=== PATIENT | male | born 1980 | race American Indian/Alaskan Native ===

== ENCOUNTER 2016-12-24 16:45 | Emergency (ER) | payer OTHER ==
[2016-12-24 16:57] VITALS: BP 141/98
[2016-12-24] MEDS ORDERED: NACL 0.9% 1000 ML 1,000 ML IV ONE (16:57)
--- NOTE | 2016-12-24 17:16 | Emergency Department Report ---
Chief Complaint: GI Bleed Stated Complaint: ABDOMINAL PAIN Time Seen by Provider: 12/24/16 17:08 - HPI History of Present Illness: Patient is a 36-year-old male with history of stomach ulcers presents to ED complaining of generalized abdominal pain of vomiting 3 days. Admits bloody stools times today - ROS Review of Systems: As noted in HPI - Exam Vital Signs: Vital Signs 12/24/16 16:54 Temperature 98.6 F Pulse Rate 80 Respiratory 20 Rate Blood Pressure 141/98 O2 Sat by Pulse 100 Oximetry Physical Exam: GENERAL: Alert and oriented x3, in mild distress , Normal Gait, atraumatic. HEART: S1, S2 present, regular rate and rhythm without murmur, no rubs, no gallops. Non tender to palpation ABDOMEN: No organomegaly was noted,Positive bowel sounds, soft, and non- distended. Tender to palpation on all Quadrants, NO CVA tenderness. SKIN: Warm and dry, No lesions, No ulceration or induration present. MSE screening note: Focused history and physical exam performed. Due to findings the following was ordered: ED Medical Decision Making - Medical Decision Making GI bleed protocol ordered. Ultrasound of the abdomen ordered. Patient to be seen by ED physician. ED Disposition for MSE Condition: Stable Forms: Accompanied Note
[2016-12-24 17:48] LABS: Basophils % (Auto) 0.5 % (0.0-1.8); Eosinophils % (Auto) 0.4 % (0.0-4.3); Hematocrit 40.9 % (35.5-45.6); Hemoglobin 13.8 gm/dl (11.8-15.2); Mean Corpuscular HGB Conc 34 % (32-34); Mean Corpuscular Hemoglobin 32 pg (28-32); Mean Corpuscular Volume 95 fl (84-94); Platelet Count 243 K/mm3 (140-440); Red Blood Count 4.31 M/mm3 (3.65-5.03); White Blood Count 8.2 K/mm3 (4.5-11.0)
[2016-12-24 17:57] LABS: INR 0.96 (0.87-1.13)
[2016-12-24 17:58] LABS: Partial Thromboplastin Time 23.1 Sec. (24.2-36.6)
[2016-12-24 18:11] LABS: Alanine Aminotransferase 13 units/L (7-56); Albumin 4.2 g/dL (3.9-5); Albumin/Globulin Ratio 1.7 %; Alkaline Phosphatase 58 units/L (35-129); Anion Gap 14 mmol/L; Blood Urea Nitrogen 9 mg/dL (9-20); Calcium 8.9 mg/dL (8.4-10.2); Carbon Dioxide 25 mmol/L (22-30); Chloride 104.7 mmol/L (98-107); Glucose 80 mg/dL (75-100); Lipase 51 units/L (13-60); Potassium 3.9 mmol/L (3.6-5.0); Sodium 140 mmol/L (137-145); Total Protein 6.7 g/dL (6.3-8.2)
--- NOTE | 2016-12-24 18:25 | Ultrasound Report ---
FINAL REPORT EXAM: US ABDOMEN COMPLETE HISTORY: abd pain TECHNIQUE: Ultrasound abdomen PRIORS: None. FINDINGS: No focal abnormality in the visualized portion of the liver parenchyma gallbladder wall is normal in thickness 0.14 centimeters. No pericholecystic fluid seen. No evidence for cholelithiasis. A positive sonographic Carpenter sign is reported. Common bile duct is 0.27 centimeters Right kidney is 9.6 x 5.5 x 4.8 centimeters. Cortical thickness 1.1 centimeters left kidney is 10.9 x 5.1 x 4.4 centimeters. Cortical thickness 1.7 centimeters no evidence for hydronephrosis or nephrolithiasis proximal abdominal aorta is 1.6 centimeters. Distal aorta not visualized The pancreas is not well seen due to overlying bowel gas The spleen is normal in size and echogenicity 7.7 centimeters IMPRESSION: Positive sonographic Carpenter sign reported however no evidence for gallbladder wall thickening or cholelithiasis. No specific evidence for acute cholecystitis at this time.
--- NOTE | 2016-12-26 01:15 | ED Elopement Review ---
ED Pt Elopement review - Results review Lab results: Laboratory Tests 12/24/16 12/24/16 12/24/16 16:50 16:57 16:57 WBC 8.2 RBC 4.31 Hgb 13.8 Hct 40.9 MCV 95 H MCH 32 MCHC 34 RDW 13.0 L Plt Count 243 Lymph % (Auto) 20.4 Jenkins % (Auto) 4.3 Eos % (Auto) 0.4 Baso % (Auto) 0.5 Lymph # 1.7 Jenkins # 0.4 Eos # 0.0 Baso # 0.0 Seg Neutrophils % 74.4 H Seg Neutrophils # 6.1 PT 13.3 INR 0.96 APTT 23.1 L Sodium Potassium Chloride Carbon Dioxide Anion Gap BUN Creatinine Estimated GFR BUN/Creatinine Ratio Glucose Calcium Total Bilirubin AST ALT Alkaline Phosphatase Total Protein Albumin Albumin/Globulin Ratio Lipase Blood Type O POSITIVE Antibody Screen TNR HEAVEN Antibody Screen Negative 12/24/16 16:57 WBC RBC Hgb Hct MCV MCH MCHC RDW Plt Count Lymph % (Auto) Jenkins % (Auto) Eos % (Auto) Baso % (Auto) Lymph # Jenkins # Eos # Baso # Seg Neutrophils % Seg Neutrophils # PT INR APTT Sodium 140 Potassium 3.9 Chloride 104.7 Carbon Dioxide 25 Anion Gap 14 BUN 9 Creatinine 1.0 Estimated GFR > 60 BUN/Creatinine Ratio 9.00 Glucose 80 Calcium 8.9 Total Bilirubin 0.40 AST 14 ALT 13 Alkaline Phosphatase 58 Total Protein 6.7 Albumin 4.2 Albumin/Globulin Ratio 1.7 Lipase 51 Blood Type Antibody Screen HEAVEN Antibody Screen - Call Back decision Pt Call Back Decision: Call pt to return to ED STEPHANIE (patient should return for probable upper GI bleed)
== END 2016-12-24 18:46 | disposition left against medical advice (07) ==
LOC: ED 16:45
DX: R10.9 Unspecified abdominal pain (principal); Z53.21 Procedure and treatment not carried out due to patient leaving prior to being seen by health care provider
CPT/HCPCS: 36415; 76700; 80053; 83690; 85025; 85610; 85730; 86850; 86900; 86901; 93005; 93010